=== PATIENT | female | born 1965 | race Caucasian/White ===

== ENCOUNTER → 2017-05-28 | Outpatient (POV) | LOC: OUTPT 00:01 | PROVIDERS: ATTEND Otolaryngology | DX: H69.90 Unspecified Eustachian tube disorder, unspecified ear (principal); H91.90 Unspecified hearing loss, unspecified ear | CPT/HCPCS: 92557 ==

== ENCOUNTER 2017-07-02 00:01 | Outpatient (POV) | END 2017-07-02 17:00 | LOC: OUTPT 00:01 | PROVIDERS: ATTEND Otolaryngology | DX: H69.90 Unspecified Eustachian tube disorder, unspecified ear (principal) ==

== ENCOUNTER 2018-07-15 13:05 | Outpatient (POV) | END 2018-07-15 17:00 | LOC: OUTPT 13:05 | PROVIDERS: ATTEND Otolaryngology | DX: H69.80 Other specified disorders of Eustachian tube, unspecified ear (principal) | CPT/HCPCS: 92557; 92567 ==